=== PATIENT | female | born 1980 | race Caucasian/White ===

== ENCOUNTER 2019-04-03 15:04 | Day surgery (SDC) | payer SELFPAY ==
[2019-04-03] MEDS ORDERED: propofoL 200 MG/20 ML VIAL IV ONE (15:46)
[2019-04-03] MEDS ORDERED: Ringers Lactate 1,000 ML IV ONE (15:48)
[2019-04-03] MEDS ORDERED: FENTANYL CITR 100 MCG/2 ML ONE (15:48)
[2019-04-03] MEDS ORDERED: LIDOCAINE 2% MPF 5 ML VIAL ONE (16:00)
[2019-04-03 16:04] LABS: Specific Gravity >= 1.030 (1.005-1.030)
[2019-04-03] MEDS ORDERED: CEFOXITIN/SWI 1gm 1 GM/10 ML SYR ONE (16:23)
--- NOTE | 2019-04-03 16:28 | P.HP ---
Date of Service: 04/03/19 PC: This 38-year-old female presents for an appendectomy. HPC: Patient woke up this morning. Was having right lower quadrant abdominal pain. 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 She was sent for a CT scan which verified acute appendicitis. She presents now for a definitive surgery. PMH: Negative PSHx: Previous tummy tuck SOC: Takes aspirin SYS REVIEW: Otherwise healthy female O/E awake alert vital signs are stable in the mild discomfort HEENT: Not icteric Chest: Chest movement equal bilaterally ABD: Guarding with rebound in the right lower quadrant LOCO: Intact DATA: CT scan for confirms clinical diagnosis of acute appendicitis IMPRESSION: Acute abdomen with appendicitis PLAN: I will take her the operating room for laparoscopic possible open appendectomy. The risks of this procedure have been discussed. The possibility of bleeding, infection, injury to bowel and surrounding structures have been described. The possible need for an open and/or further surgeries and procedures was discussed. She understands and wants us to proceed.
[2019-04-03] MEDS ORDERED: SUCCINYLCHOLINE 20 MG/ML (10 ML) IV ONE ×2 (16:30→16:34)
[2019-04-03] MEDS ORDERED: dexAMETHasone 10 MG/ML VIAL ONE (16:45)
[2019-04-03] MEDS ORDERED: ONDANSETRON 4 MG/2 ML VIAL ONE ×2 (16:45→18:22)
[2019-04-03] MEDS ORDERED: KETOROLAC 30 MG/ML INJ ONE (16:56)
[2019-04-03] MEDS ORDERED: Ringers Lactate 1,000 ML IV SCH (17:00)
[2019-04-03] MEDS ORDERED: GLYCOPYRROLATE 0.2 MG/ML SYR ONE (17:05)
[2019-04-03] MEDS ORDERED: NEOSTIGMINE 1 MG/ML -5 ML ONE (17:05)
--- NOTE | 2019-04-03 17:38 | P.OP ---
Preoperative diagnosis: Acute abdomen Postoperative diagnosis: Acute appendicitis Primary procedure: Laparoscopic appendectomy Anesthesia: General Estimated blood loss: Less than 10 cc Specimen: 1 appendix Operative Technique: The patient brought the operating room placed supine on the table the induction of adequate general endotracheal anesthesia, the area of the abdomen was prepped with a DuraPrep solution, and she was draped in usual aseptic manner. A subumbilical incision was made. This brought down through the skin and subcutaneous tissue. The Visiport was now used to enter the peritoneal cavity and created pneumoperitoneum to approximately 12 mm of mercury. Under direct vision a 5 mm trocar was placed in the lower midline, and another in the right upper quadrant. The patient was now placed in Trendelenburg and rolled to the left. We could visualize the right lower quadrant. We could see a meandering appendix the came inferiorly then wrapped and medially to lay just lateral to the cecum against the abdominal sidewall. There were some retroperitoneal adhesions to this area. These were taken down using blunt sharp dissection. The appendix was now isolated. We could see the vascular bundle more clearly. Hence a grasper was placed across is bundle and close down. The linear Stapler was now placed across this and fired. This allowed us to better define the junction of the appendix with the cecum. This was carefully dissected out until we could clearly see this point. The linear Stapler was now reintroduced into the peritoneal cavity. It was placed across the base of the appendix at its takeoff from the cecum. The instrument was fired. This breast was now placed into an Endo-Catch and brought out through the umbilical trocar site. Attention was turned back towards the operative site. It was irrigated with a saline solution. A small amount of bleeding from the vascular bed was easily controlled using electro cautery. There is now irrigated the clots aspirated. The patient was returned to the neutral position on the OR table. At this point the umbilical trocar site was approximated using the Endo Close an absorbable suture. Good approximation the fascia having been achieved we once again inspected our operative site. There was no evidence of any bleeding. A Ricky block of 0.25% Marcaine was now done to the anterior abdominal wall on the right side. The pneumoperitoneum was collapsed, the trocars removed, and asim were applied to the skin. The staple sites were injected also with the remaining 0.25% Marcaine were applied At the end of the procedure she was stable when sent to the recovery room. Needle sponge instrument count were correct. No drains were placed. Transferred to: Recovery Room Condition: Good
[2019-04-03] MEDS: HYDROMORPHONE HCL 2 MG/ML inj ONE ×4 (17:45→18:08)
[2019-04-03] MEDS: HYDROMORPHONE HCL 1 MG/ML INJ ONE ×2 (18:15→18:20)
[2019-04-03] MEDS: HYDROCODONE/APAP 7.5/325 MG TAB PO PRN (20:57)
[2019-04-03 21:19] VITALS: BMI 35.9
[2019-04-03] MEDS: MORPHINE 4 MG/ML SYR IV PRN (22:59)
[2019-04-03] MEDS: ONDANSETRON 4 MG/2 ML VIAL IV PRN (23:12)
[2019-04-04] MEDS: CEFOXITIN/SWI 1gm 1 GM/10 ML SYR IVP SCH ×2 (00:55→06:16)
[2019-04-04 01:35] VITALS: O2SAT 96
[2019-04-04] MEDS: HYDROCODONE/APAP 7.5/325 MG TAB PO PRN ×2 (02:09→08:45)
[2019-04-04] MEDS: MORPHINE 4 MG/ML SYR IV PRN ×2 (04:02→10:40)
[2019-04-04] MEDS: ONDANSETRON 4 MG/2 ML VIAL IV PRN (08:46)
--- NOTE | 2019-04-04 10:57 | P.DS ---
Discharge Date: 04/04/19 Disposition: ROUTINE DISCHARGE Discharge Condition: GOOD Reason for Admission: Acute postoperative abdominal pain Procedures: Laparoscopic appendectomy Brief History of Present Illness: This patient was sent for a CT scan due to the clinical diagnosis of appendicitis may her primary physician. This scan was positive. She was referred for an appendectomy. Hospital Course: The patient was brought to the operating room. Abdomen is she underwent a laparoscopic appendectomy. Postoperatively she was admitted for observation pain control. Today she is up ambulating, tolerating regular diet, and her pain is controlled on oral medication. She is deemed fit for discharge. Vital Signs/Physical Exam: Temp Pulse Resp BP Pulse Ox 96.9 F 94 H 18 110/59 L 96 04/04/19 04:00 04/04/19 04:00 04/04/19 10:40 04/04/19 04:00 04/04/19 10:40 Home Medications: Bupropion *Xl* [Wellbutrin XL*] 150 mg PO BID 04/03/19 Liraglutide [Saxenda] 1.2 mg SQ DAILY 04/03/19
[2019-04-04 13:07] VITALS: BP 116/69; TEMP 97.8
== END 2019-04-04 12:12 | disposition home or self-care (01) ==
LOC: DS 15:04 → 2ND 16:31 → DS 04-04 12:12
PROVIDERS: ATTEND Surgery
PROC: 0DTJ4ZZ Resection of Appendix, Percutaneous Endoscopic Approach (ICD-10-PCS; principal; 2019-04-03 16:00)
DX: K35.80 Unspecified acute appendicitis (principal); Z79.82 Long term (current) use of aspirin
CPT/HCPCS: 81025; 88304; J0330; J1100; J1170; J2405; J2704; J2710; J3010; J7120